=== PATIENT | male | born 1980 | race Caucasian/White ===

== ENCOUNTER → 2017-08-09 | Outpatient (CLI) | payer OTHER | LOC: SUN.DIA 10:41 | DX: E11.9 Type 2 diabetes mellitus without complications (principal); I10 Essential (primary) hypertension; E66.9 Obesity, unspecified; Z68.34 Body mass index [BMI] 34.0-34.9, adult; Z71.3 Dietary counseling and surveillance | CPT/HCPCS: G0108 ==

== ENCOUNTER → 2017-08-19 | Outpatient (CLI) | payer BC | LOC: SUN.DIA 09:56 | DX: E11.9 Type 2 diabetes mellitus without complications (principal); I10 Essential (primary) hypertension; E66.9 Obesity, unspecified; Z68.35 Body mass index [BMI] 35.0-35.9, adult; Z71.3 Dietary counseling and surveillance | CPT/HCPCS: G0108 ==

== ENCOUNTER → 2017-08-25 | Outpatient (CLI) | payer BC | LOC: SUN.DIA 16:10 | DX: E11.9 Type 2 diabetes mellitus without complications (principal); I10 Essential (primary) hypertension; E66.9 Obesity, unspecified; Z71.3 Dietary counseling and surveillance | CPT/HCPCS: G0109 ==

== ENCOUNTER → 2017-09-08 | Outpatient (CLI) | payer BC | LOC: SUN.DIA 08:44 | DX: E11.9 Type 2 diabetes mellitus without complications (principal); I10 Essential (primary) hypertension; E66.9 Obesity, unspecified; Z71.3 Dietary counseling and surveillance | CPT/HCPCS: G0109 ==

== ENCOUNTER 2022-01-09 14:45 | Observation (INO) | payer OTHER ==
[~2022-01-09] VITALS: Ht 177.8 cm; Wt 112.3 kg
[2022-01-09 16:47] LABS: ALBUMIN 4.6 gm/dL (3.5-5.0); BILIRUBIN,TOTAL 1.3 mg/dL (0.2-1.2); C-REACTIVE PROTEIN 4.31 mg/dL (0.00-0.50); CALCIUM 9.8 mg/dL (8.4-10.2); CREATININE, serum 0.83 mg/dL (0.72-1.25); POTASSIUM 3.5 mmol/L (3.5-4.5); TOTAL PROTEIN 8.8 gm/dL (6.2-8.1)
[2022-01-09] MEDS ORDERED: LOTREL 10 MG-401 CAP PO (22:41)
[2022-01-09] MEDS ORDERED: HCTZ 25MG TAB25 MG PO (22:42)
[2022-01-09] MEDS ORDERED: CELEXA 20MG20 MG/TAB PO (22:42)
[2022-01-09] MEDS ORDERED: FLONASE NASAL S16 GM NS (22:43)
[2022-01-09] MEDS ORDERED: JARDIANCE10 PO (22:43)
[2022-01-09] MEDS ORDERED: CLARITIN 1010 MG/TAB PO (22:43)
[2022-01-09] MEDS ORDERED: GLUCOPHAGE XR500 M1 PO (22:44)
[2022-01-09] MEDS ORDERED: ISTALOL 2.5 ML2.5 ML OD (22:45)
[2022-01-10] VITALS (9 sets, daily range): BP systolic 146–176; BP diastolic 58–108; PULSE 58–108; TEMP 98.1–99.6
--- NOTE | 2022-01-10 01:13 | NUR ---
Patient arrived via ER bed at approximately 2200. Patient was acclimated to the room and call light functions. Full body and admission assessment completed. Patient does state that he is experiencing RUQ pain, PRN dilaudid was given. Patient is resting quietly in bed, personal CPap machine is on. Patient has been tolerating ice chips well. Patient has no other complaints at this time, call light within reach.
--- NOTE | 2022-01-10 05:46 | NUR ---
Patient has had an uneventful evening. He is currently resting quietly in bed. Patient is still NPO and it appears that the patients pain is being adequately controlled. Call light within reach.
[2022-01-10 06:21] LABS: BASO % 0.3 % (0.0-2.0); EOS # 0.1 K/mm3 (0.0-0.7); EOS % 0.7 % (0.0-4.0); GRAN # 10.9 K/mm3 (1.4-6.5); GRAN % 77.5 % (42.2-75.2); HEMATOCRIT 45.6 % (42.0-52.0); HEMOGLOBIN 15.7 g/dl (13.5-18.0); LYMPH # 1.6 K/mm3 (1.2-3.4); MEAN CELL VOLUME 89 fl (80.0-100.0); MEAN CORPUSCULAR HEMOGLOBIN 31 pg (27-31); MEAN CORPUSCULAR HGB CONC 34 g/dl (33.0-37.0); MEAN PLATELET VOLUME 10.4 fl (7.4-10.4); MONO # 1.4 K/mm3 (0.1-0.6); PLATELET COUNT 158 K/mm3 (130-400); RED BLOOD COUNT 5.15 M/mm3 (4.20-5.60); REDCELL DISTRIBUTION WIDTH-CV 12.4 % (11.5-14.5)
[2022-01-10 06:29] LABS: ALBUMIN 3.9 gm/dL (3.5-5.0); BILIRUBIN,TOTAL 1.4 mg/dL (0.2-1.2); C-REACTIVE PROTEIN 13.01 mg/dL (0.00-0.50); CALCIUM 9.1 mg/dL (8.4-10.2); CREATININE, serum 0.8 mg/dL (0.72-1.25); POTASSIUM 3.3 mmol/L (3.5-4.5); TOTAL PROTEIN 7.9 gm/dL (6.2-8.1)
[2022-01-10] MEDS ORDERED: XALATAN EYE DROPS OU (09:14)
--- NOTE | 2022-01-10 10:00 | NUR ---
Patient up independent in room. rounded this am, plan of care reviewed. Patient took his own home medication this am including his BP med & celexa. So I did not give hospital medications. Made him aware he should hold metformin due to CT scan with contrast for 48 hours. Ivf changed to fluids with K+. Protonix per orders. Dose of dilaudid for pain, pain was elevated after clear liquids, I suggested he take it slow and not overdo it, we will keep him hydrated with IVF. He denies nausea. Will monitor.
--- NOTE | 2022-01-10 13:32 | NUR ---
Patient resting in bed. His at bedside. Requesting Dilaudid for pain. Bp elevated, recheck improved, but still high. He denies nausea. He is taking in clears, continue to encouarge him to take it slow. Francia to resume cares
--- NOTE | 2022-01-10 15:07 | NUR ---
Sw met with pt to complete intake. The pt lives at home with & 2 children. , Anna, . The reports independent on all ADLS and still drives. The pt reports he does use a CPAP and glucometer. PCP is Dr. Gifford and gets medications from [email or web address]. The pt reports DPOA-HC and he has offial form at home in safe. DC: Home
--- NOTE | 2022-01-10 17:56 | NUR ---
Patient sitting up in bed, A&Ox4. VSS. IV CDI, fluids infusing. Denies pain and discomfort. Family at the bedside no further needs expressed. Call light within reach
--- NOTE | 2022-01-11 02:22 | NUR ---
Report received from CHERI Feldman. Patient has been pleasant thus far this shift. Full body assessment completed, vital signs completed with slightly elevated BP. Patient states that this is "normal" for him and that he is not symptomatic. Patients pain has been appropriately controlled this evening, one dose of dilaudid was adminstered early in the shift; patient has no complaints of pain and rates it at 1/10. Patient has no complaints at this time, I will continue to monitor. Call light within reach.
[2022-01-11 03:49] VITALS: BP 147/78; PULSE 80; TEMP 97.3
[2022-01-11 06:12] LABS: BASO % 0.3 % (0.0-2.0); EOS # 0.2 K/mm3 (0.0-0.7); EOS % 2.1 % (0.0-4.0); GRAN # 6.9 K/mm3 (1.4-6.5); GRAN % 73.4 % (42.2-75.2); HEMATOCRIT 44.4 % (42.0-52.0); HEMOGLOBIN 15.3 g/dl (13.5-18.0); LYMPH # 1.4 K/mm3 (1.2-3.4); LYMPH % 14.4 % (20.0-51.0); MEAN CELL VOLUME 89 fl (80.0-100.0); MEAN CORPUSCULAR HEMOGLOBIN 31 pg (27-31); MEAN CORPUSCULAR HGB CONC 35 g/dl (33.0-37.0); MEAN PLATELET VOLUME 10.2 fl (7.4-10.4); MONO # 0.9 K/mm3 (0.1-0.6); MONO % 9.4 % (1.7-9.3); PLATELET COUNT 155 K/mm3 (130-400); RED BLOOD COUNT 4.98 M/mm3 (4.20-5.60); REDCELL DISTRIBUTION WIDTH-CV 12.4 % (11.5-14.5)
[2022-01-11 06:32] LABS: ALBUMIN 3.5 gm/dL (3.5-5.0); BILIRUBIN,TOTAL 1.3 mg/dL (0.2-1.2); CALCIUM 8.8 mg/dL (8.4-10.2); CREATININE, serum 0.7 mg/dL (0.72-1.25); POTASSIUM 3.7 mmol/L (3.5-4.5); TOTAL PROTEIN 7.4 gm/dL (6.2-8.1)
[2022-01-11 08:32] VITALS: BP 150/84; PULSE 59; TEMP 98.7
[2022-01-11] MEDS ORDERED: PROTONIX 40MG T40 MG PO (10:30)
[2022-01-11] MEDS ORDERED: LEVAQUIN 5500 MG/TA1 PO (10:31)
[2022-01-11] MEDS ORDERED: NORCO 325 MG-51 TAB PO (10:31)
--- NOTE | 2022-01-11 11:31 | NUR ---
PT GIVEN DISCHARGE INSTRUCTIONS ET EDUCATION, DENIES FURTHER QUESTIONS. PT HAS BEEN UP IN ROOM INDEPENDENTLY, DENIES PAIN BUT IS VERY HUNGRY. PT GIVEN EDUCATION ON LOW FAT DIET, VERBALIZES UNDERSTANDING. PT WILL AMBULATE DOWN TO HIS TRANSPORTATION WITH STAFF WHEN HIS FAMILY ARRIVES TO PICK HIM UP.
--- NOTE | 2022-01-11 12:35 | NUR ---
PT DISCHARGED @ 1212, AMBULATED TO DOOR WITH [facility].
== END 2022-01-11 12:12 | disposition home or self-care (01) ==
LOC: COL.ER 14:45 → SURG 18:53
PROVIDERS: Emergency Medicine; ADMIT Surgery
DX: K85.90 Acute pancreatitis without necrosis or infection, unspecified (principal); Z86.16 Personal history of COVID-19
CPT/HCPCS: A9270; C9113; G0378; J1170; J1956; J2270; J2405; J3010; J3480; J7030; Q9967

== ENCOUNTER → 2022-01-13 | Outpatient (CLI) | payer OTHER ==
[~2022-01-13] MED LIST: CELEXA 20MG20 MG/TAB PO; CLARITIN 1010 MG/TAB PO; FLONASE NASAL S16 GM NS; GLUCOPHAGE XR500 M1 PO; HCTZ 25MG TAB25 MG PO; ISTALOL 2.5 ML2.5 ML OD; JARDIANCE10 PO; LEVAQUIN 5500 MG/TA1 PO; LOTREL 10 MG-401 CAP PO; NORCO 325 MG-51 TAB PO; PROTONIX 40MG T40 MG PO; XALATAN EYE DROPS OU
== END ==
LOC: COL.RAD 08:28
DX: R10.11 Right upper quadrant pain (principal)

== ENCOUNTER → 2022-02-02 | Outpatient (CLI) | payer OTHER | LOC: COL.RAD 06:31 | DX: R10.11 Right upper quadrant pain (principal) | CPT/HCPCS: A9537 ==

== ENCOUNTER 2023-10-15 19:56 | Emergency (ER) | payer OTHER ==
[~2023-10-15] VITALS: Ht 177.8 cm; Wt 113.6 kg
[2023-10-15 23:03] VITALS: TEMP 97.8
[2023-10-16 00:02] VITALS: BP 150/103; PULSE 83
== END 2023-10-16 00:02 | disposition home or self-care (01) ==
LOC: COL.ER 19:56
DX: T18.128A Food in esophagus causing other injury, initial encounter (principal)
CPT/HCPCS: J1610; J2405; J2704; J3010